=== PATIENT | male | born 1945 | race Caucasian/White ===

== ENCOUNTER → 2017-04-05 11:23 | Outpatient (CLI) | payer MEDICARE, OTHER, SELFPAY ==
[2016-06-13 14:48] VITALS: BMI 27.3
[2017-04-05 14:04] LABS: Absolute Neutrophil Count 5.6 X10^3/uL (2.0-7.7); Basophil# 0.03 X10^3/uL; Basophil% 0.4 % (0-1); Eosinophil# 0.23 X10^3/uL; Eosinophils% 3.1 % (0-5); Hematocrit 36.9 % (40-54); Hemoglobin 12.5 g/dl (13.0-16.5); Lymphocyte % 13.5 % (19-41); Mean Corp Hgb Conc 33.9 g/gl (32-36); Mean Corpuscular Hgb 32.8 pg (27.0-32.0); Mean Corpuscular Volume 96.9 fL (80-94); Mean Platelet Vol. 10.6 fl (6.2-12.0); Monocyte% 6.7 % (0-10); Neutrophil # 5.64 X10^3/uL (2.7-7.7); Neutrophil % 76.2 % (47-70); Platelet Count 219 K/mm3 (150-450); Red Blood Count 3.81 M/mm3 (4.6-6.2); White Blood Count 7.4 K/mm3 (4.4-11.0)
[2017-04-05 14:06] LABS: POSITIVE COUNT NO; POSITIVE DIFFERENTIAL NO; POSITIVE MORPHOLOGY NO
[2017-04-05 14:36] LABS: ALB/GLOB Ratio 1.2 RATIO (0.9-2.4); AST(SGOT) 19 U/L (15-37); Alanine Aminotransfer ALT/SGPT 28 U/L (12-78); Albumin, Serum 4.1 g/dL (3.4-5.0); Alkaline Phosphatase 80 U/L (45-117); Anion Gap 11 (5-15); BUN 29 mg/dL (7-18); BUN/Creat Ratio 21.6 RATIO (10-20); Calcium,Total 9.1 mg/dL (8.5-10.1); Chloride 103 mmol/L (98-107); Cholesterol 202 mg/dL (200); Creatinine, Serum 1.34 mg/dL (0.70-1.30); EST Glomerular Filtration Rate 56 mL/min (>60); Est Glom Filt Rate - Afr Amer 68 mL/min (>60); Globulin 3.4 g/dL (2.2-4.2); Glucose 102 mg/dL (70-110); High Density Lipoprotein 42 mg/dL; PSA,Total - Annual Screen 1.68 ng/mL (0.00-4.00); Potassium 4.4 mmol/L (3.5-5.1); Protein, Total 7.5 g/dL (6.4-8.2); Sodium Level 138 mmol/L (136-145); Thyroid Stim Hormone (TSH) 1.34 uIU/mL (0.358-3.74); Triglycerides 212 mg/dL; Very Low Density Lipoprotein 42 mg/dL (5-40)
== END ==
PROVIDERS: Family Provider Internal Medicine; PCP Internal Medicine; Visit Provider Nurse Practitioner Family
DX: E78.5 Hyperlipidemia, unspecified (principal); R06.09 Other forms of dyspnea; Z13.29 Encounter for screening for other suspected endocrine disorder; N40.0 Benign prostatic hyperplasia without lower urinary tract symptoms; I10 Essential (primary) hypertension; Z12.5 Encounter for screening for malignant neoplasm of prostate
CPT/HCPCS: 36415; 80053; 80061; 84153; 84443; 85025; G0103

== ENCOUNTER → 2017-05-10 07:54 | Outpatient (CLI) | payer MEDICARE, OTHER, SELFPAY ==
[2016-06-13 14:48] VITALS: BMI 27.3
--- NOTE | 2017-05-10 12:05 | PFT ---
INTRODUCTION: The patient is a 71-year-old male currently under the care of Dr. Anderson that presents for pulmonary function testing secondary to a diagnosis of COPD. Respiratory therapy reports good patient effort. Bronchodilators were used during testing. INTERPRETATION: Forced expiration spirometry demonstrates the presence of a moderate large airways obstructive ventilatory defect. There was no significant response to aerosolized bronchodilators, based upon strict ATS criteria. Spirogram's do not plateau indicating slow emptying of the lungs. Body plethysmography was performed and reveals evidence of both hyperinflation and air trapping. Diffusing capacity by single breath CO is severely reduced at 23% of predicted. When compared to previous pulmonary function studies dated November 2016, there has been worsening air trapping. IMPRESSION: These pulmonary function studies demonstrate the presence of an irreversible moderate large airways obstructive ventilatory defect with associated hyperinflation, air trapping and reduction in diffusing capacity. There has been worsening air-trapping since PFTs were last completed in 2016.
== END ==
PROVIDERS: Family Provider Internal Medicine; PCP Internal Medicine; Visit Provider Internal Medicine Critical Care Medicine
DX: J44.9 Chronic obstructive pulmonary disease, unspecified (principal)
CPT/HCPCS: 94060; 94726; 94729

== ENCOUNTER → 2017-05-13 09:00 | Outpatient (CLI) | payer MEDICARE, OTHER, SELFPAY ==
[2016-06-13 14:48] VITALS: BMI 27.3
[2017-05-13 09:34] VITALS: PULSE 103; PULSE 106; PULSE 109; PULSE 110; PULSE 111; PULSE 117; PULSE 81; O2SAT 84; O2SAT 85; O2SAT 89; O2SAT 91; O2SAT 93; O2SAT 95; O2SAT 97
--- NOTE | 2017-05-13 09:38 | CPS ---
Patient wears a high flow cannula at 9 lpm. Less than 1 minute after taking off O2 patient's SpO2 was 87% on room air. Placed patient back on his high flow cannula and home O2 settings for testing. At 1:40 of testing, patient was 84% and states he is pretty severely SOB. Stopped patient which he continued to desaturate to 75% within the time of stopping and setting up a NRB mask. Patient walked a little over 300 ft within the first 1 minute and 40 seconds. Placed patient on 15 lpm NRB mask, SpO2 recovered to 95%, continued walk. By the 4th minute patient SpO2 85%, patient states he is moderately SOB, took a break for one minute to recover to 89%.
--- NOTE | 2017-05-13 17:14 | WT_ITS ---
PSN 6 Minute Walk Test - 6 Minute Walk Test 6 Minute Walk Test: 6 Minute Walk Test PSN:6-Minute Walk Test Start: 05/13/17 09: 34 Freq: Status: Active Protocol: RESP.6MINW Document 05/13/17 09:34 NADIA (Rec: 05/13/17 09:47 NADIA [id number]) 6 Minute Walk Test Date Performed 05/13/17 Time Performed 09:10 Height 5 ft 7 in Weight: 77.111 kg Weight in Pounds 170.[address]: Mynor Anderson Assistive device used: None Pre-test Oxygen Flow Rate (L/min) (L/min) 9 Oxygen Delivery Method Nasal Cannula Pulse Ox (%) 93 Pulse Rate (60-100 beats/min) 81 Dyspnea Andrew Scale (0-10) 0 Exertion Andrew Scale (6-20) 6 1st minute Oxygen Flow Rate (L/min) (L/min) 9 Oxygen Delivery Method Nasal Cannula Pulse Ox (%) 91 Pulse Rate (60-100 beats/min) 106 H 2nd minute Oxygen Flow Rate (L/min) (L/min) 9 Oxygen Delivery Method Nasal Cannula Pulse Ox (%) 84 Pulse Rate (60-100 beats/min) 110 H Dyspnea Andrew Scale (0-10) 5 3rd minute Oxygen Flow Rate (L/min) (L/min) 15 Oxygen Delivery Method Non-Rebreather Pulse Ox (%) 95 Pulse Rate (60-100 beats/min) 103 H 4th minute Oxygen Flow Rate (L/min) (L/min) 15 Oxygen Delivery Method Non-Rebreather Pulse Ox (%) 85 Pulse Rate (60-100 beats/min) 117 H Dyspnea Andrew Scale (0-10) 3 Number of Rests Taken 1 5th minute Oxygen Flow Rate (L/min) (L/min) 15 Oxygen Delivery Method Non-Rebreather Pulse Ox (%) 89 Pulse Rate (60-100 beats/min) 109 H 6th minute Oxygen Flow Rate (L/min) (L/min) 15 Oxygen Delivery Method Non-Rebreather Pulse Ox (%) 91 Pulse Rate (60-100 beats/min) 111 H Dyspnea Andrew Scale (0-10) 3 Exertion Andrew Scale (6-20) 12 Post-test Oxygen Flow Rate (L/min) (L/min) 15 Oxygen Delivery Method Non-Rebreather Pulse Ox (%) 97 Pulse Rate (60-100 beats/min) 81 Full Laps Walked 15 Partial Lap, Number of Tiles Walked 40 Total Distance Walked (ft) 925 05/13/17 09:38 Cardiopulmonary Services by Angelia Mendez Patient wears a high flow cannula at 9 lpm. Less than 1 minute after taking off O2 patient's SpO2 was 87% on room air. Placed patient back on his high flow cannula and home O2 settings for testing. At 1:40 of testing, patient was 84% and states he is pretty severely SOB. Stopped patient which he continued to desaturate to 75% within the time of stopping and setting up a NRB mask. Patient walked a little over 300 ft within the first 1 minute and 40 seconds. Placed patient on 15 lpm NRB mask, SpO2 recovered to 95%, continued walk. By the 4th minute patient SpO2 85%, patient states he is moderately SOB, took a break for one minute to recover to 89%. Initialized on 05/13/17 09:38 - END OF NOTE - Interpretation Interpretation: The patient was noted to be 87% on room air. The patient was then placed on 9 L /min high flow nasal cannula oxygen, but desaturated after 1 minute 40 seconds to 84%. The patient was then placed on a nonrebreather mask and continue to desaturate in the fourth minute to 85%. In total the patient was able to tolerate ambulation of 925 feet despite maximal oxygen supplementation. These findings are consistent with a respiratory limitation exercise tolerance - Recommendations Recommendations: The patient requires 9 L/min at rest. However, patient should be provided an electronic scooter or other mechanism to limit exertion as patient did desaturate despite maximal supplemental oxygen flow.
== END ==
PROVIDERS: Family Provider Internal Medicine; PCP Internal Medicine; Visit Provider Internal Medicine Critical Care Medicine
DX: R06.02 Shortness of breath (principal)
CPT/HCPCS: 94618

== ENCOUNTER → 2017-06-05 09:49 | Outpatient (CLI) | payer MEDICARE, OTHER, SELFPAY ==
[2016-06-13 14:48] VITALS: BMI 27.3
--- NOTE | 2017-06-05 09:52 | ECHOCS_ITS ---
Reason For Study: dyspnea/SOB Procedure This was a 2D Doppler, Color Flow transthoracic echocardiogram. The study was technically difficult. Due to respiratory interference, PT on 9 L of O2. Left Ventricle Normal LV size. Mild concentric left ventricular hypertrophy. Left ventricular systolic function is lower limits of normal. The estimated ejection fraction is 53 %. Transmitral diastolic flow velocities suggest mild (stage 1) diastolic dysfunction (reversed pattern). No regional wall motion abnormalities noted. Right Ventricle Normal RV size. Normal systolic function. Atria Normal left atrium. Normal right atrium. Mitral Valve Normal mitral valve. Tricuspid Valve Normal tricuspid valve. Mild (1+) tricuspid valve insufficiency. Pulmonary artery systolic pressure is 38 mmHg. Aortic Valve Trisinus/trileaflet aortic valve. Pulmonic Valve Normal pulmonic valve. Great Vessels Normal aortic root. The pulmonary artery is normal size. Normal inferior vena cava. Pericardium/Pleural No pericardial effusion. MMode/2D Measurements & Calculations LVIDd: 4.6 cm IVSd: 1.2 cm Ao root diam: 3.3 cm LVIDs: 2.9 cm LVPWd: 1.2 cm LA dimension: 4.0 cm RVDd: 3.3 cm FS: 37.2 % LAV(MOD-bp): 39.0 ml LA A4 area: 15.1 cm2 RA A4 area: 13.5 cm2 LAV(MOD-bp) Indexed: 20.7 ml/m2 LAV(MOD-sp2): 38.2 ml LAV(MOD-sp4): 38.8 ml Time Measurements MV dec time: 0.21 sec Doppler Measurements & Calculations MV E max ray: 54.6 cm/sec Lat Peak E' Ray: 3.9 cm/sec Med Peak E' Ray: 4.6 cm/sec MV A max ray: 93.8 cm/sec E/E' lat: 13.9 E/E' med: 11.7 MV E/A: 0.58 Ao V2 max: 131.9 cm/sec LV V1 max: 84.6 cm/sec PA V2 max: 94.1 cm/sec Ao max P.0 mmHg LV V1 max P.9 mmHg TR max ray: 290.8 cm/sec TR max P.9 mmHg Interpretation Summary Normal LV size. Mild concentric left ventricular hypertrophy. Left ventricular systolic function is lower limits of normal. The estimated ejection fraction is 53 %. Transmitral diastolic flow velocities suggest mild (stage 1) diastolic dysfunction (reversed pattern). Compared to prior study, there is no significant change. Ordering Physician: Anitha Hobson Referring Physician: Casey Lopez Performed By: Liz Glaser, ROCHELLE, RVT
== END ==
PROVIDERS: Family Provider Internal Medicine; PCP Internal Medicine; Visit Provider Nurse Practitioner Acute Care
DX: R06.00 Dyspnea, unspecified (principal); R06.02 Shortness of breath
CPT/HCPCS: 93306

== ENCOUNTER → 2018-03-17 09:35 | Outpatient (CLI) | payer MEDICARE, OTHER, SELFPAY ==
[2016-06-13 14:48] VITALS: BMI 27.3
[2018-02-03 13:07] VITALS: BMI 27.6
--- NOTE | 2018-03-17 09:41 | STE_ITS ---
Reason For Study: CAD/ASHD Stress Results Protocol: Dobutamine Stress Echocardiogram Maximum Predicted HR: 150 bpm Target HR: 128 bpm % Maximum Predicted HR: 91 % DurationHeart Rate Stage (mm:ss) (bpm) BP Dose Comment BASELINE 80 124/85 O2 11L/NC PO 93-94%, T WAVE INVERSION DSE- 10 MCG 3:44 93 152/6210.00PO 93% DSE- 20 MCG 4:01 137 156/7920.00PO 89-93% RECOVERY 88 115/80 PO 90- 92% Stress Duration: 7:45 mm:ss Maximum Stress HR: 137 bpm Baseline Echocardiogram Findings The estimated ejection fraction is 65 %. Stress Echo Wall motion Data Resting WM Intermediate WM Stress WM Resting Wall Motion Wall Motion Stress No regional wall motion No regional wall motion abnormalities noted. abnormalities noted. EKG Data Normal intervals are noted. The patient was titrated from 10 mcg to a maximum of 20 mcg of dobutamine during the stress. The maximum heart rate attained was 137 beats per minute. This was 91% of maximum predicted heart rate. During dobutamine infusion, there were no ST or T wave changes noted to suggest ischemia. No clinical angina was noted. Interpretation Summary The estimated ejection fraction is 65 %. Normal, adequate, dobutamine echocardiogram. Negative for ischemia by EKG and echocardiographic criteria. No anginal symptoms noted. Rare PVCs noted. Appropriate blood pressure response to dobutamine. Test terminated due to target heart rate achieved. Final LVEF of 75%. No complications. Ordering Physician: Hossein Monzon Referring Physician: Hossein Monzon Performed By: Steve Brock RCS
== END ==
PROVIDERS: Family Provider Internal Medicine; PCP Internal Medicine; Referring Provider Internal Medicine Cardiovascular Disease; Visit Provider Internal Medicine Cardiovascular Disease
DX: E78.5 Hyperlipidemia, unspecified (principal); I25.10 Atherosclerotic heart disease of native coronary artery without angina pectoris; I27.21 Secondary pulmonary arterial hypertension; R09.02 Hypoxemia
CPT/HCPCS: 93017; 93350; J7040; A4216